=== PATIENT | female | born 1945 | race Caucasian/White ===

== ENCOUNTER 2017-08-25 07:21 | Day surgery (SDC) | payer OTHER ==
[~2017-08-25 07:21] MED LIST: DILTIAZEM 24HR240 MG PO; SERTRALINE HCL50 MG PO; SYNTHROID75 MCG PO
== END 2017-08-25 12:15 | disposition home or self-care (01) ==
LOC: CIR.AMB 07:21
DX: N88.2 Stricture and stenosis of cervix uteri (principal)

== ENCOUNTER 2019-12-26 13:24 | Outpatient (CLI) | payer OTHER | END 2019-12-26 13:34 | disposition home or self-care (01) | LOC: NUCLEAR 13:24 | PROVIDERS: ATTEND Internal Medicine | DX: R41.3 Other amnesia (principal); G30.8 Other Alzheimer's disease | CPT/HCPCS: 78803; A9503 ==

== ENCOUNTER 2021-09-07 10:42 | Emergency (ER) | payer OTHER ==
[~2021-09-07] VITALS: Ht 152.4 cm; Wt 77.1 kg
== END 2021-09-07 17:54 | disposition home or self-care (01) ==
LOC: ER 10:42
DX: R00.1 Bradycardia, unspecified (principal); I10 Essential (primary) hypertension